=== PATIENT | female | born 1960 | race Caucasian/White ===

== ENCOUNTER 2024-07-31 07:37 | Outpatient (CLI) | payer BC, SELFPAY ==
--- NOTE | ~2024-07-31 | MR_ITS ---
EXAMINATION: MR shoulder RT wo con DATE: 07/31/2024 08:23 INDICATION: Chronic right shoulder pain. TECHNIQUE: Magnetic resonance imaging (MRI) of the right shoulder was performed without intravenous c ontrast. Sequences included axial PD-weighted FS FSE, coronal oblique PD-weighted FS FSE and T2-weigh cresencio FS FSE, and sagittal oblique T2-weighted FS FSE and T1-weighted FSE. COMPARISON: None. FINDINGS: Coracoacromial arch: The acromion undersurface is curved in morphology (type II). 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 There is moderate subacromial/subdeltoid bursitis. Rotator cuff: There is severe supraspinatus tendinopathy and moderate infraspinatus tendinopathy. There is a small bursal-sided tear of infraspinatus tendon measuring 6 mm anterior to posterior by 11 mm proximal to d istal by 30% tendon thickness. Teres minor tendon is normal. There is mild subscapularis tendinopathy . There is no asymmetric fatty atrophy of the rotator cuff muscle bellies. Biceps tendon and glenoid labrum: Biceps tendon is in bicipital groove. There is mild intra-articular biceps tendinopathy. There is a t ear of superior labrum from 11:00 to 1:00 (SLAP tear). Fluid: There is a small glenohumeral joint effusion. Bones/cartilage: There is cartilage surface irregularity of glenoid. Humeral head cartilage is normal. IMPRESSION: 1. Severe rotator cuff tendinopathy with bursal-sided, partial-thickness tear of infraspinatus tendon . 2. Mild glenoid chondrosis. SLAP tear. 3. Small glenohumeral joint effusion. 4. Moderate subacromial/subdeltoid bursitis. 5. Mild intra-articular biceps tendinopathy. Reviewed, dictated and finalized at location A. [employer] IMPRESSION: 1. Severe rotator cuff tendinopathy with bursal-sided, partial-thickness tear o f infraspinatus tendon. 2. Mild glenoid chondrosis. SLAP tear. 3. Small glenohumeral joint effusion. 4. Moderate subacromial/subdeltoid bursitis. 5. Mild intra-articular biceps tendinopathy.
== END 2024-07-31 07:38 | disposition home or self-care (01) ==
LOC: MICIMG 07:40
PROVIDERS: PCP Physician Assistant; Referring Provider Physician Assistant; Visit Provider Family Medicine
DX: M25.411 Effusion, right shoulder (principal); M75.51 Bursitis of right shoulder; S43.431A Superior glenoid labrum lesion of right shoulder, initial encounter; X58.XXXA Exposure to other specified factors, initial encounter
CPT/HCPCS: 73221